=== PATIENT | male | born 1950 | race Caucasian/White ===

== ENCOUNTER 2019-04-14 07:42 | Emergency (ER) | payer MEDICARE ==
[~2019-04-14] VITALS: Ht 190.5 cm; Wt 111.0 kg
[2019-04-14 09:10] VITALS: BP 106/61
== END 2019-04-14 09:11 | disposition home or self-care (01) ==
LOC: ER 07:43
DX: R19.03 Right lower quadrant abdominal swelling, mass and lump (principal); Z95.5 Presence of coronary angioplasty implant and graft
CPT/HCPCS: 99284

== ENCOUNTER 2019-04-27 18:28 | Inpatient (IN) | payer MEDICARE ==
[~2019-04-27] VITALS: Ht 190.5 cm; Wt 119.4 kg
[2019-04-27] MEDS ORDERED: aspirin 81mg tab.chew PO ONE (18:45)
[2019-04-27] MEDS ORDERED: nitroGLYCERIN 0.4mg SUBLingual tab SL PRN ×2 (18:45→21:45)
[2019-04-27 18:55] LABS: BASOPHILS # (AUTO) 0.1 X10'3 (0-0.2); EOSINOPHILS # (AUTO) 0.2 X10'3 (0-0.9); HEMATOCRIT 37.1 % (42.0-52.0); HEMOGLOBIN 12.7 g/dl (14.0-17.9); LYMPHOCYTES # (AUTO) 1.9 X10'3 (1.1-4.8); LYMPHOCYTES % (AUTO) 25.5 % (21-51); MEAN CORPUSCULAR HEMOGLOBIN 30.6 PG (27.0-31.0); MEAN CORPUSCULAR HGB CONC 34.1 g/dL (33.0-36.5); MEAN CORPUSCULAR VOLUME 89.7 FL (78-98); MEAN PLATELET VOLUME 7.7 FL (7.4-10.4); MONOCYTES # (AUTO) 0.6 X10'3 (0-0.9); MONOCYTES % (AUTO) 8.3 % (2-12); NEUTROPHILS # (AUTO) 4.6 X10'3 (1.8-7.7); NEUTROPHILS % (AUTO) 62.2 % (42-75); PLATELET COUNT 170 X10'3 (140-440); RED BLOOD COUNT 4.13 X10'6 (4.70-6.10); RED CELL DISTRIBUTION WIDTH 13.7 % (11.5-14.5); WHITE BLOOD COUNT 7.3 X10'3 (4.5-11.0)
[2019-04-27 19:05] LABS: ALANINE AMINOTRANSFERASE 46 U/L (12-78); ALBUMIN 3.5 G/DL (3.4-5.0); ALKALINE PHOSPHATASE 122 IU/L (46-116); ANION GAP 7 (8-16); ASPARTATE AMINO TRANSFERASE 30 U/L (10-37); BILIRUBIN,TOTAL 1.1 MG/DL (0.1-1.0); BLOOD UREA NITROGEN 18 MG/DL (7-18); BUN/CREATININE RATIO 18.2 (5.4-32.0); CHLORIDE 108 MMOL/L (99-107); CREATININE 0.99 MG/DL (0.60-1.10); GLUCOSE 85 MG/DL (70-104); POTASSIUM 4.4 MMOL/L (3.5-5.1); SODIUM 141 MMOL/L (135-145); TOTAL CARBON DIOXIDE 26.5 MMOL/L (24-32); eGFR 75 ML/MIN
[2019-04-27] MEDS ORDERED: TETanus/Pertussis (Acell)/Diphther VAC/PF (Tdap-Adult) 0.5ml syringe IMVAC ONE (19:10)
[2019-04-27] MEDS ORDERED: ASPI-1144 PO (19:46)
[2019-04-27] MEDS ORDERED: LOSA100T57 PO (19:46)
[2019-04-27] MEDS ORDERED: TICA90TA2 PO (19:46)
[2019-04-27] MEDS ORDERED: NITR0.4T48 SL (19:55)
[2019-04-27] MEDS ORDERED: CALC-1092 (19:55)
[2019-04-27] MEDS ORDERED: OMEG-107 PO (19:55)
[2019-04-27] MEDS ORDERED: ATOR-2 PO (19:55)
[2019-04-27] MEDS ORDERED: CARV3.122 PO (19:55)
[2019-04-27] MEDS ORDERED: EZET10TA48 PO (19:55)
[2019-04-27] MEDS ORDERED: GLUC-193 PO (19:55)
[2019-04-27] MEDS ORDERED: MAGN100T PO (19:57)
[2019-04-27] MEDS ORDERED: iohexol 350MG/ML 100ml bottle IV ONE (20:11)
[2019-04-27] MEDS ORDERED: heparin 10,000 units/1 ML INJ IV PRN (20:20)
[2019-04-27] MEDS ORDERED: heparin 10,000 units/1 ML INJ IV ONE ×2 (20:20→20:30)
[2019-04-27 21:32] LABS: PARTIAL THROMBOPLASTIN TIME 27 SECONDS (22-32)
[2019-04-27] MEDS ORDERED: potassium CL 10mEq/100ml bag 100 ML IV PRN ×2 (21:40)
[2019-04-27] MEDS ORDERED: magnesium 2GM in 50ml NS 50 ML IV PRN (21:40)
[2019-04-27] MEDS ORDERED: mag hydrox/Alum hydrox/simeth 30ml oral suspension PO PRN (21:40)
[2019-04-27] MEDS ORDERED: magnesium hydroxide 30ml (MOM) UD suspension PO PRN (21:40)
[2019-04-27] MEDS ORDERED: magnesium Cl slow-release 64mg tablet PO PRN (21:40)
[2019-04-27] MEDS ORDERED: acetaminophen 325mg tablet PO PRN (21:40)
[2019-04-27] MEDS ORDERED: potassium Cl 20 mEq SR tablet PO PRN ×2 (21:40)
[2019-04-27] MEDS ORDERED: magnesium 4gm in 100ml NS 100 ML IV PRN (21:40)
[2019-04-27] MEDS ORDERED: ondansetron/PF 4mg/2ml inj IV PRN (21:40)
--- NOTE | 2019-04-27 22:00 | NUR ---
Patient in room MED 309. I have received report from RAISSA PARK and had the opportunity to ask questions and assume patient care.
[2019-04-27 22:15] VITALS: BP 117/70
--- NOTE | 2019-04-27 22:15 | NUR ---
PT ARRIVED ON UNIT IN STABLE CONDITION AND IN NO APPARENT DISTRESS.
[2019-04-27] MEDS: ticagrelor 90mg tablet PO SCH (23:09)
[2019-04-27] MEDS: heparin 25,000 UNIT/250ml bag 250 ML IV SCH (23:22)
[2019-04-28] VITALS (11 sets, daily range): BP systolic 104–129; BP diastolic 56–78
[2019-04-28 01:23] LABS: BASOPHILS # (AUTO) 0.1 X10'3 (0-0.2); BASOPHILS % (AUTO) 0.8 % (0-1); EOSINOPHILS # (AUTO) 0.3 X10'3 (0-0.9); HEMATOCRIT 37.4 % (42.0-52.0); HEMOGLOBIN 13.1 g/dl (14.0-17.9); LYMPHOCYTES # (AUTO) 2.4 X10'3 (1.1-4.8); LYMPHOCYTES % (AUTO) 26.3 % (21-51); MEAN CORPUSCULAR HEMOGLOBIN 31.2 PG (27.0-31.0); MEAN CORPUSCULAR HGB CONC 34.9 g/dL (33.0-36.5); MEAN CORPUSCULAR VOLUME 89.4 FL (78-98); MEAN PLATELET VOLUME 7.6 FL (7.4-10.4); MONOCYTES # (AUTO) 0.7 X10'3 (0-0.9); MONOCYTES % (AUTO) 7.9 % (2-12); NEUTROPHILS # (AUTO) 5.6 X10'3 (1.8-7.7); PLATELET COUNT 164 X10'3 (140-440); RED BLOOD COUNT 4.19 X10'6 (4.70-6.10); RED CELL DISTRIBUTION WIDTH 13.6 % (11.5-14.5)
[2019-04-28 01:43] LABS: ALANINE AMINOTRANSFERASE 47 U/L (12-78); ALBUMIN 3.5 G/DL (3.4-5.0); ALKALINE PHOSPHATASE 124 IU/L (46-116); ANION GAP 8 (8-16); ASPARTATE AMINO TRANSFERASE 31 U/L (10-37); BLOOD UREA NITROGEN 16 MG/DL (7-18); CALCIUM 8.5 MG/DL (8.5-10.1); CHLORIDE 107 MMOL/L (99-107); CREATININE 0.94 MG/DL (0.60-1.10); GLUCOSE 108 MG/DL (70-104); POTASSIUM 3.7 MMOL/L (3.5-5.1); SODIUM 141 MMOL/L (135-145); TOTAL CARBON DIOXIDE 25.7 MMOL/L (24-32); TOTAL PROTEIN 7.1 G/DL (6.4-8.2); eGFR 80 ML/MIN
[2019-04-28 01:46] LABS: MAGNESIUM 2.1 MG/DL (1.5-2.4)
--- NOTE | 2019-04-28 06:30 | NUR ---
Patient in room MED 309. I have received report from JOSE PARK and had the opportunity to ask questions and assume patient care.
--- NOTE | 2019-04-28 06:44 | NUR ---
Problems reprioritized. Patient report given, questions answered & plan of care reviewed with Judith PARK.
[2019-04-28] MEDS: heparin 25,000 UNIT/250ml bag 250 ML IV SCH (07:56)
[2019-04-28] MEDS ORDERED: omega-3 acid ethyl esters 1GM capsule PO SCH (08:00)
[2019-04-28] MEDS: ticagrelor 90mg tablet PO SCH (08:00)
[2019-04-28] MEDS ORDERED: K and/or MAG REPLACEMENT MC SCH (08:00)
[2019-04-28] MEDS ORDERED: carVEDilol 3.125mg tablet PO SCH (08:00)
[2019-04-28] MEDS ORDERED: aspirin 81mg tab.chew PO SCH (08:00)
[2019-04-28] MEDS ORDERED: ezetimibe 10mg tablet PO SCH (08:00)
--- NOTE | 2019-04-28 10:53 | NUR ---
STOPPED HEPARIN DRIP AT THIS TIME.
[2019-04-28] MEDS ORDERED: ibuprofen 200mg tablet PO PRN (11:10)
--- NOTE | 2019-04-28 11:17 | NUR ---
PLANS TO GO TO [facility] AT 1300 PER PATIENT REQUEST. TROPONINS NEGATIVE. EKG WNL. CARDIO CONSULT STILL PENDING.
[2019-04-28] MEDS ORDERED: aminophylline 250mg/10ml inj. IV PRN (11:35)
[2019-04-28] MEDS ORDERED: nitroGLYCERIN 0.4mg SUBLingual tab SL PRN (11:35)
[2019-04-28] MEDS ORDERED: regadenoson 0.4mg/5ml syringe IV PRN (11:35)
[2019-04-28] MEDS ORDERED: metoprolol tartrate 1mg/ml inj IV PRN (11:35)
--- NOTE | 2019-04-28 12:15 | NUR ---
Went down to nuc med for stress nuc med test
--- NOTE | 2019-04-28 14:51 | NUR ---
Returned from [facility].
--- NOTE | 2019-04-28 15:01 | NUR ---
Paged hospitalist, "Judith [phone] Enrique Bermudez- Stress test resulted NEGATIVE-please review results."
--- NOTE | 2019-04-28 16:50 | NUR ---
Discussed discharge instructions with patient, verbalizes understanding. IV removed, Tele dc'd. Belongings gathered together. Calling daughter for pickup.
--- NOTE | 2019-04-28 17:19 | NUR ---
Patient waiting on ride, gave report to Florence PARK.
--- NOTE | 2019-04-28 17:48 | NUR ---
Patient discharged, all instructions given to this patient by VIVIAN Wong. Patient left the [facility] unit escorted by VIVIAN Mehta and Student from [facility]. Patient was alert and oriented and in stable condition. He walked out on his own.
[2019-04-28] MEDS ORDERED: losartan 50mg tablet PO SCH (21:00)
[2019-04-28] MEDS ORDERED: atorvastatin 20mg tablet PO SCH (21:00)
--- NOTE | 2019-04-30 12:33 | NUR ---
Case Management DC follow up: spoke to pt via telephone. Reports feeling good, s/s that brought pt into ER have lessened. Taking walks. Still a little tight, most likely muscles in back, Denies CP, emergent general pain, SOB, respiratory distress, NV, dizziness, syncope episodes, abd pain, BARKLEY, blurry vision. Verbalizes understanding of medications and why prescribed. Taking as ordered, no ase noted r/t polypharmacy/new meds. verbalizes understanding of s/s that would warrant -/ER visit for evaluation. Acknowledges importance of scheduling/keeping appointments w/PCP/kirby/appt coming up/referrals/specialists/[facility] at end of May, on cancel list in hopes of getting in earlier. Needs met, questions answered at DC. No further questions at this time.
== END 2019-04-28 17:45 | disposition home or self-care (01) | DRG 552 ==
LOC: ER 18:28 → MED 3N 21:39
PROVIDERS: ADMIT Internal Medicine; ATTEND Internal Medicine
DX: M54.9 Dorsalgia, unspecified (principal); I20.0 Unstable angina; E78.5 Hyperlipidemia, unspecified; I10 Essential (primary) hypertension; M47.816 Spondylosis without myelopathy or radiculopathy, lumbar region; Z79.02 Long term (current) use of antithrombotics/antiplatelets; I25.2 Old myocardial infarction; Z79.82 Long term (current) use of aspirin; Z79.899 Other long term (current) drug therapy; Z82.49 Family history of ischemic heart disease and other diseases of the circulatory system
CPT/HCPCS: 36415; 71045; 71275; 74174; 78452; 80053; 83735; 83880; 84484; 85025; 85610; 85730; 87081; 90715; 93005; 93017; 93306; 99285; A9500; GO378; J1644; J2785; Q9967

== ENCOUNTER 2019-08-27 18:25 | Emergency (ER) | payer MEDICARE, BC ==
[~2019-08-27] VITALS: Ht 190.5 cm; Wt 105.9 kg
[~2019-08-27 18:25] MED LIST: ASPI-1144 PO; ATOR-2 PO; CALC-1092; CARV3.122 PO; EZET10TA48 PO; GLUC-193 PO; LOSA100T57 PO; MAGN100T PO; NITR0.4T48 SL; OMEG-107 PO; TICA90TA2 PO
[2019-08-27 18:46] LABS: BASOPHILS % (AUTO) 0.6 % (0-1); EOSINOPHILS # (AUTO) 0.2 X10'3 (0-0.9); HEMATOCRIT 40.5 % (42.0-52.0); HEMOGLOBIN 13.6 g/dl (14.0-17.9); LYMPHOCYTES # (AUTO) 1.6 X10'3 (1.1-4.8); LYMPHOCYTES % (AUTO) 19.5 % (21-51); MEAN CORPUSCULAR HEMOGLOBIN 30.8 PG (27.0-31.0); MEAN CORPUSCULAR HGB CONC 33.7 g/dL (33.0-36.5); MEAN CORPUSCULAR VOLUME 91.4 FL (78-98); MEAN PLATELET VOLUME 7.7 FL (7.4-10.4); MONOCYTES # (AUTO) 0.5 X10'3 (0-0.9); MONOCYTES % (AUTO) 6.3 % (2-12); NEUTROPHILS # (AUTO) 5.8 X10'3 (1.8-7.7); NEUTROPHILS % (AUTO) 70.6 % (42-75); PLATELET COUNT 173 X10'3 (140-440); RED BLOOD COUNT 4.43 X10'6 (4.70-6.10); RED CELL DISTRIBUTION WIDTH 13.8 % (11.5-14.5); WHITE BLOOD COUNT 8.2 X10'3 (4.5-11.0)
[2019-08-27 19:01] LABS: ALANINE AMINOTRANSFERASE 54 U/L (12-78); ALBUMIN 3.8 G/DL (3.4-5.0); ALBUMIN/GLOBULIN RATIO 0.9 (1.1-1.5); ALKALINE PHOSPHATASE 189 IU/L (46-116); ANION GAP 10 (8-16); ASPARTATE AMINO TRANSFERASE 34 U/L (10-37); BILIRUBIN,TOTAL 1.3 MG/DL (0.1-1.0); BLOOD UREA NITROGEN 32 MG/DL (7-18); BUN/CREATININE RATIO 30.2 (5.4-32.0); CALCIUM 8.7 MG/DL (8.5-10.1); CHLORIDE 107 MMOL/L (99-107); CREATININE 1.06 MG/DL (0.60-1.10); GLUCOSE 117 MG/DL (70-104); POTASSIUM 4.3 MMOL/L (3.5-5.1); SODIUM 140 MMOL/L (135-145); TOTAL CARBON DIOXIDE 22.8 MMOL/L (24-32); TOTAL PROTEIN 7.9 G/DL (6.4-8.2); eGFR 69 ML/MIN
[2019-08-27] MEDS: nitroGLYCERIN 0.4mg SUBLingual tab SL PRN ×3 (19:30→20:13)
[2019-08-27 20:50] VITALS: BP 92/52
== END 2019-08-27 20:55 | disposition home or self-care (01) ==
LOC: ER 18:26
DX: I20.9 Angina pectoris, unspecified (principal); I25.2 Old myocardial infarction; Z98.890 Other specified postprocedural states; Z79.82 Long term (current) use of aspirin; Z79.899 Other long term (current) drug therapy
CPT/HCPCS: 36415; 71045; 80053; 84484; 85025; 93005; 99285

== ENCOUNTER 2020-07-19 08:11 | Emergency (ER) | payer MEDICARE, BC ==
[~2020-07-19] VITALS: Ht 190.5 cm; Wt 106.8 kg
[~2020-07-19 08:11] MED LIST changes: -ATOR-2 PO; +ATOR20TA66 PO; -CALC-1092; -EZET10TA48 PO; -MAGN100T PO; +MAGN100T5 PO; +MULT-1085 PO; -OMEG-107 PO; +VITA-268 PO; +VITA40TA PO
[2020-07-19 08:28] VITALS: BP 131/77
== END 2020-07-19 11:11 | disposition home or self-care (01) ==
LOC: ER 08:12
DX: S80.11XA Contusion of right lower leg, initial encounter (principal); I25.2 Old myocardial infarction; Z95.5 Presence of coronary angioplasty implant and graft; Z79.82 Long term (current) use of aspirin; Z79.899 Other long term (current) drug therapy; X50.1XXA Overexertion from prolonged static or awkward postures, initial encounter; Y93.89 Activity, other specified; Y92.89 Other specified places as the place of occurrence of the external cause; Y99.8 Other external cause status
CPT/HCPCS: 93971; 99284

== ENCOUNTER 2020-10-01 07:08 | Day surgery (SDC) | payer MEDICARE, BC ==
[2020-09-30 10:00] LABS: BASOPHILS % (AUTO) 0.8 % (0-1); EOSINOPHILS # (AUTO) 0.3 X10'3 (0-0.9); EOSINOPHILS % (AUTO) 4.6 % (0-6); HEMATOCRIT 41.2 % (42.0-52.0); HEMOGLOBIN 14.2 g/dl (14.0-17.9); LYMPHOCYTES # (AUTO) 1.2 X10'3 (1.1-4.8); LYMPHOCYTES % (AUTO) 21.1 % (21-51); MEAN CORPUSCULAR HEMOGLOBIN 31.2 PG (27.0-31.0); MEAN CORPUSCULAR HGB CONC 34.5 g/dL (33.0-36.5); MEAN CORPUSCULAR VOLUME 90.5 FL (78-98); MEAN PLATELET VOLUME 7.1 FL (7.4-10.4); MONOCYTES # (AUTO) 0.5 X10'3 (0-0.9); MONOCYTES % (AUTO) 8.2 % (2-12); NEUTROPHILS # (AUTO) 3.7 X10'3 (1.8-7.7); NEUTROPHILS % (AUTO) 65.3 % (42-75); PLATELET COUNT 187 X10'3 (140-440); RED BLOOD COUNT 4.56 X10'6 (4.70-6.10); RED CELL DISTRIBUTION WIDTH 13.5 % (11.5-14.5); WHITE BLOOD COUNT 5.7 X10'3 (4.5-11.0)
[2020-09-30 10:09] LABS: ALBUMIN 3.9 G/DL (3.4-5.0); ANION GAP 8 (8-16); BLOOD UREA NITROGEN 17 MG/DL (7-18); CALCIUM 8.2 MG/DL (8.5-10.1); CHLORIDE 107 MMOL/L (99-107); GLUCOSE 98 MG/DL (70-104); POTASSIUM 4.6 MMOL/L (3.5-5.1); SODIUM 143 MMOL/L (135-145); TOTAL CARBON DIOXIDE 27.8 MMOL/L (24-32); eGFR 74 ML/MIN
[2020-09-30 10:13] LABS: PARTIAL THROMBOPLASTIN TIME 26 SECONDS (22-32)
[2020-10-01] VITALS (10 sets, daily range): BP systolic 109–127; BP diastolic 50–80
[~2020-10-01] VITALS: Ht 190.5 cm; Wt 110.0 kg
[2020-10-01] MEDS ORDERED: diphenhydrAMINE 25mg capsule PO PRN (07:35)
[2020-10-01] MEDS ORDERED: normal saline 1,000 ML IV SCH (07:35)
[2020-10-01] MEDS ORDERED: acetylcysteine 200 MG/ml 4ml vial PO PRN (07:35)
[2020-10-01] MEDS ORDERED: MAGN400C PO (07:41)
[2020-10-01] MEDS ORDERED: LANS30CA56 PO (07:45)
[2020-10-01] MEDS ORDERED: OMEG1CAP21 PO (07:45)
[2020-10-01] MEDS ORDERED: LORazepam 0.5 MG tablet PO PRN (08:00)
[2020-10-01] MEDS ORDERED: LIDOcaine/PRILOcaine 5gm cream TP ONE (08:05)
[2020-10-01] MEDS ORDERED: nitroGLYCERIN-Tridil 50MG/D5W 250 ML IV ONE (10:13)
[2020-10-01] MEDS ORDERED: verapamil 2.5 mg/ml inj IV ONE (10:13)
[2020-10-01] MEDS ORDERED: midazolam 1 mg/ML 2ml injection ONE (10:13)
[2020-10-01] MEDS ORDERED: iohexol 350 MG/ML 50ML vial IV ONE ×3 (10:14→11:23)
[2020-10-01] MEDS ORDERED: heparin 1,000unit/ml 10ml vial 10 ML ONE (10:14)
[2020-10-01] MEDS ORDERED: LIDOcaine 1% (10mg/ml)w/preservative injection 20ml MDV ONE (10:14)
[2020-10-01] MEDS ORDERED: iohexol 350MG/ML 100ml bottle IV ONE (10:14)
[2020-10-01] MEDS ORDERED: fentaNYL/PF 50MCG/1 ML 2ML syringe ONE (10:14)
== END 2020-10-01 16:55 | disposition home or self-care (01) ==
LOC: SSTAY O 07:08
PROVIDERS: ATTEND Internal Medicine Cardiovascular Disease
DX: R94.39 Abnormal result of other cardiovascular function study (principal); R53.83 Other fatigue; I25.10 Atherosclerotic heart disease of native coronary artery without angina pectoris; I10 Essential (primary) hypertension; G47.33 Obstructive sleep apnea (adult) (pediatric); E78.5 Hyperlipidemia, unspecified; I47.1 Supraventricular tachycardia; E66.9 Obesity, unspecified; Z68.30 Body mass index [BMI] 30.0-30.9, adult; Z95.5 Presence of coronary angioplasty implant and graft; Z79.82 Long term (current) use of aspirin; Z79.899 Other long term (current) drug therapy; Z85.46 Personal history of malignant neoplasm of prostate; Z98.52 Vasectomy status; Z90.79 Acquired absence of other genital organ(s); Z98.890 Other specified postprocedural states; Z87.891 Personal history of nicotine dependence; Z88.8 Allergy status to other drugs, medicaments and biological substances; Z79.01 Long term (current) use of anticoagulants
CPT/HCPCS: 36415; 76937; 80048; 85025; 85610; 85730; 93005; 93458; 93567; 99152; 99153; C1751; C1769; C1894; J1644; J2001; J2250; J3010; J7030; Q0163; Q9967; A4620; A5120; A6258; J3490

== ENCOUNTER 2020-11-12 09:50 | Outpatient (CLI) | payer MEDICARE, BC ==
[~2020-11-12 09:50] MED LIST changes: +LANS30CA56 PO; -MAGN100T5 PO; +MAGN400C PO; +OMEG1CAP21 PO; -VITA-268 PO; -VITA40TA PO
[2020-11-12 11:02] LABS: BASOPHILS # (AUTO) 0.1 X10'3 (0-0.2); BASOPHILS % (AUTO) 0.8 % (0-1); EOSINOPHILS # (AUTO) 0.5 X10'3 (0-0.9); LYMPHOCYTES # (AUTO) 1.2 X10'3 (1.1-4.8); LYMPHOCYTES % (AUTO) 20.9 % (21-51); MEAN CORPUSCULAR HEMOGLOBIN 31.1 PG (27.0-31.0); MEAN CORPUSCULAR HGB CONC 34.5 g/dL (33.0-36.5); MEAN CORPUSCULAR VOLUME 90.2 FL (78-98); MEAN PLATELET VOLUME 6.7 FL (7.4-10.4); MONOCYTES # (AUTO) 0.5 X10'3 (0-0.9); MONOCYTES % (AUTO) 8.6 % (2-12); NEUTROPHILS # (AUTO) 3.7 X10'3 (1.8-7.7); NEUTROPHILS % (AUTO) 61.7 % (42-75); PRE OP HEMOGLOBIN 14.5 g/dL (14.0-17.9); PRE OP PLATELET COUNT 199 X10'3 (140-440); RED BLOOD COUNT 4.66 X10'6 (4.70-6.10); RED CELL DISTRIBUTION WIDTH 13.6 % (11.5-14.5)
[2020-11-12] MEDS ORDERED: CARV3.122 PO (11:11)
[2020-11-12 11:26] LABS: ALBUMIN 3.9 G/DL (3.4-5.0); ALBUMIN/GLOBULIN RATIO 0.9 (1.1-1.5); ALKALINE PHOSPHATASE 183 IU/L (46-116); BLOOD UREA NITROGEN 24 MG/DL (7-18); BUN/CREATININE RATIO 25.5 (5.4-32.0); CALCIUM 8.8 MG/DL (8.5-10.1); CHLORIDE 105 MMOL/L (99-107); CREATININE 0.94 MG/DL (0.60-1.10); PRE OP ALT 41 U/L (30-65); PRE OP ANION GAP 7 (8-16); PRE OP AST 42 U/L (10-37); PRE OP BILIRUB, TOTAL 1.3 MG/DL (0.0-1.0); PRE OP GLUCOSE 107 MG/DL (70-104); PRE OP POTASSIUM 4.8 MMOL/L (3.4-5.1); PRE OP SODIUM 140 MMOL/L (135-145); TOTAL CARBON DIOXIDE 28.2 MMOL/L (24-32); TOTAL PROTEIN 8.1 G/DL (6.4-8.2); eGFR 79 ML/MIN
[2020-11-12] MEDS ORDERED: CHOL20004 PO (12:09)
[2020-11-12] MEDS ORDERED: MELA10TA2 PO (12:09)
[2020-11-12] MEDS ORDERED: MAGN250T11 PO (12:09)
[2020-11-12] MEDS ORDERED: VITA100C25 PO (12:09)
[2020-11-12] MEDS ORDERED: VITA-268 PO (12:09)
[2020-11-12] MEDS ORDERED: HYDR-3965 PO (15:47)
[2020-11-12] MEDS ORDERED: AMOX-115 PO (15:47)
== END 2020-11-12 23:59 | disposition home or self-care (01) ==
LOC: PRE-OP 09:50 → EDSTATUS 11-18 09:00
PROVIDERS: ATTEND Surgery
DX: Z01.818 Encounter for other preprocedural examination (principal); K40.20 Bilateral inguinal hernia, without obstruction or gangrene, not specified as recurrent; I25.2 Old myocardial infarction; G47.30 Sleep apnea, unspecified; Z20.822 Contact with and (suspected) exposure to COVID-19; Z87.891 Personal history of nicotine dependence; Z85.46 Personal history of malignant neoplasm of prostate; Z86.19 Personal history of other infectious and parasitic diseases; Z98.890 Other specified postprocedural states; Z79.899 Other long term (current) drug therapy
CPT/HCPCS: 36415; 80053; 85025; U0003; U0005

== ENCOUNTER 2020-11-12 11:05 | Emergency (ER) | payer MEDICARE, BC ==
[~2020-11-12] VITALS: Ht 190.5 cm; Wt 110.0 kg
[~2020-11-12 11:05] MED LIST changes: +LIDOcaine 1% W/epiNEPHrine 1:100,000 20ml vial ONE
[2020-11-12] MEDS ORDERED: CARV3.122 PO (11:11)
[2020-11-12 11:15] VITALS: BP 124/73
[2020-11-12] MEDS ORDERED: oxymetazoline 15 ML nasal spray NS ONE (11:15)
[2020-11-12] MEDS ORDERED: tranexamic acid 100mg/ml inj. TP ONE (11:15)
[2020-11-12] MEDS ORDERED: MAGN250T11 PO (12:09)
[2020-11-12] MEDS ORDERED: MELA10TA2 PO (12:09)
[2020-11-12] MEDS ORDERED: CHOL20004 PO (12:09)
[2020-11-12] MEDS ORDERED: VITA100C25 PO (12:09)
[2020-11-12] MEDS ORDERED: VITA-268 PO (12:09)
[2020-11-12] MEDS ORDERED: LIDOcaine 2% 10ml TOPICAL JELLY (Urojet) MM ONE (12:15)
[2020-11-12 15:30] LABS: BASOPHILS % (AUTO) 0.5 % (0-1); EOSINOPHILS # (AUTO) 0.4 X10'3 (0-0.9); EOSINOPHILS % (AUTO) 4.5 % (0-6); HEMATOCRIT 38.8 % (42.0-52.0); HEMOGLOBIN 13.4 g/dl (14.0-17.9); LYMPHOCYTES # (AUTO) 1.4 X10'3 (1.1-4.8); LYMPHOCYTES % (AUTO) 14.6 % (21-51); MEAN CORPUSCULAR HEMOGLOBIN 31.4 PG (27.0-31.0); MEAN CORPUSCULAR HGB CONC 34.6 g/dL (33.0-36.5); MEAN CORPUSCULAR VOLUME 90.7 FL (78-98); MEAN PLATELET VOLUME 7.1 FL (7.4-10.4); MONOCYTES # (AUTO) 0.6 X10'3 (0-0.9); MONOCYTES % (AUTO) 6.2 % (2-12); NEUTROPHILS # (AUTO) 7.4 X10'3 (1.8-7.7); NEUTROPHILS % (AUTO) 74.2 % (42-75); PLATELET COUNT 191 X10'3 (140-440); RED BLOOD COUNT 4.28 X10'6 (4.70-6.10); RED CELL DISTRIBUTION WIDTH 13.8 % (11.5-14.5); WHITE BLOOD COUNT 9.9 X10'3 (4.5-11.0)
[2020-11-12 15:46] LABS: ALANINE AMINOTRANSFERASE 40 U/L (12-78); ALBUMIN 3.6 G/DL (3.4-5.0); ALKALINE PHOSPHATASE 158 IU/L (46-116); ANION GAP 8 (8-16); ASPARTATE AMINO TRANSFERASE 29 U/L (10-37); BILIRUBIN,TOTAL 1.4 MG/DL (0.1-1.0); BLOOD UREA NITROGEN 28 MG/DL (7-18); BUN/CREATININE RATIO 33.3 (5.4-32.0); CALCIUM 8.6 MG/DL (8.5-10.1); CHLORIDE 109 MMOL/L (99-107); CREATININE 0.84 MG/DL (0.60-1.10); GLUCOSE 110 MG/DL (70-104); POTASSIUM 4.6 MMOL/L (3.5-5.1); SODIUM 142 MMOL/L (135-145); TOTAL CARBON DIOXIDE 24.8 MMOL/L (24-32); TOTAL PROTEIN 7.3 G/DL (6.4-8.2); eGFR 90 ML/MIN
[2020-11-12] MEDS ORDERED: HYDR-3965 PO (15:47)
[2020-11-12] MEDS ORDERED: AMOX-115 PO (15:47)
== END 2020-11-12 16:02 | disposition home or self-care (01) ==
LOC: ER 11:08
DX: R04.0 Epistaxis (principal); D68.59 Other primary thrombophilia; I25.2 Old myocardial infarction; Z98.890 Other specified postprocedural states; Z79.2 Long term (current) use of antibiotics; Z79.899 Other long term (current) drug therapy
CPT/HCPCS: 30901; 36415; 80053; 85025; 99284

== ENCOUNTER 2020-11-15 09:16 | Emergency (ER) | payer MEDICARE, BC ==
[~2020-11-15] VITALS: Ht 190.5 cm; Wt 104.5 kg
[~2020-11-15 09:16] MED LIST changes: +AMOX-115 PO; +CHOL20004 PO; +HYDR-3965 PO; -LIDOcaine 1% W/epiNEPHrine 1:100,000 20ml vial ONE; +MAGN250T11 PO; -MAGN400C PO; +MELA10TA2 PO; +VITA-268 PO; +VITA100C25 PO
[2020-11-15 09:22] VITALS: BP 125/74
[2020-11-15] MEDS ORDERED: oxymetazoline 15 ML nasal spray NS ONE (10:25)
== END 2020-11-15 11:18 | disposition home or self-care (01) ==
LOC: ER 09:17
DX: Z48.00 Encounter for change or removal of nonsurgical wound dressing (principal); I25.2 Old myocardial infarction; Z95.5 Presence of coronary angioplasty implant and graft; Z79.82 Long term (current) use of aspirin; Z79.899 Other long term (current) drug therapy; Z79.01 Long term (current) use of anticoagulants
CPT/HCPCS: 99282

== ENCOUNTER 2021-03-19 04:48 | Observation (INO) | payer MEDICARE, BC ==
[2021-03-19] VITALS (8 sets, daily range): BP systolic 113–154; BP diastolic 55–76
[~2021-03-19] VITALS: Ht 190.5 cm; Wt 113.0 kg
[~2021-03-19 04:48] MED LIST changes: -AMOX-115 PO; -HYDR-3965 PO
[2021-03-19] MEDS ORDERED: aspirin 325mg tablet PO ONE (05:55)
[2021-03-19 06:26] LABS: ALANINE AMINOTRANSFERASE 47 U/L (12-78); ALBUMIN 3.6 G/DL (3.4-5.0); ALBUMIN/GLOBULIN RATIO 0.9 (1.1-1.5); ALKALINE PHOSPHATASE 202 IU/L (46-116); ANION GAP 11 (8-16); ASPARTATE AMINO TRANSFERASE 36 U/L (10-37); BILIRUBIN,TOTAL 0.8 MG/DL (0.1-1.0); BLOOD UREA NITROGEN 21 MG/DL (7-18); BUN/CREATININE RATIO 23.9 (5.4-32.0); CALCIUM 8.7 MG/DL (8.5-10.1); CHLORIDE 105 MMOL/L (99-107); CREATININE 0.88 MG/DL (0.60-1.10); GLUCOSE 108 MG/DL (70-104); POTASSIUM 4.1 MMOL/L (3.5-5.1); SODIUM 141 MMOL/L (135-145); TOTAL CARBON DIOXIDE 25.3 MMOL/L (24-32); TOTAL PROTEIN 7.6 G/DL (6.4-8.2); eGFR 85 ML/MIN
[2021-03-19 06:34] LABS: BASOPHILS % (AUTO) 0.6 % (0-1); EOSINOPHILS # (AUTO) 0.3 X10'3 (0-0.9); EOSINOPHILS % (AUTO) 4.3 % (0-6); HEMATOCRIT 39.6 % (42.0-52.0); HEMOGLOBIN 13.4 g/dl (14.0-17.9); LYMPHOCYTES # (AUTO) 1.1 X10'3 (1.1-4.8); LYMPHOCYTES % (AUTO) 17.9 % (21-51); MEAN CORPUSCULAR HEMOGLOBIN 29.6 PG (27.0-31.0); MEAN CORPUSCULAR VOLUME 86.9 FL (78-98); MEAN PLATELET VOLUME 7.4 FL (7.4-10.4); MONOCYTES # (AUTO) 0.6 X10'3 (0-0.9); MONOCYTES % (AUTO) 9.5 % (2-12); NEUTROPHILS % (AUTO) 67.7 % (42-75); PLATELET COUNT 185 X10'3 (140-440); RED BLOOD COUNT 4.55 X10'6 (4.70-6.10)
[2021-03-19] MEDS ORDERED: ondansetron/PF 4mg/2ml inj IV PRN (08:25)
[2021-03-19] MEDS ORDERED: magnesium hydroxide 30ml (MOM) UD suspension PO PRN (08:25)
[2021-03-19] MEDS ORDERED: nitroGLYCERIN 0.4mg SUBLingual tab SL PRN ×2 (08:25)
[2021-03-19] MEDS ORDERED: morphine 2 MG/ML inj. syringe IV PRN ×2 (08:25)
[2021-03-19] MEDS ORDERED: metoprolol tartrate 1mg/ml inj IV PRN (08:25)
[2021-03-19] MEDS ORDERED: regadenoson 0.4mg/5ml syringe IV PRN (08:25)
[2021-03-19] MEDS ORDERED: aminophylline 250mg/10ml inj. IV PRN (08:25)
[2021-03-19] MEDS ORDERED: acetaminophen 325mg tablet PO PRN ×2 (08:25)
[2021-03-19] MEDS ORDERED: mag hydrox/Alum hydrox/simeth 30ml oral suspension PO PRN (08:25)
--- NOTE | 2021-03-19 11:00 | NUR ---
Mr. Bermudez has been assessed as indicated. He rayna gore
--- NOTE | 2021-03-19 11:00 | NUR ---
Mr Bermudez has been assessed as indicated. He denies any chest pain. He is going to have a stress res Addendum: 03/19/21 at 1526 by Porsche Wasserman RN test at this time. He has no s/s of distress or discomfort and is compliant with the plan to DC.
--- NOTE | 2021-03-19 14:00 | NUR ---
Mr Bermudez has completed the admission process. He has no s/s of distress or discomfort. He answerers all questions appropriately. His skin has been found to be intact. he has completed the stress test and awaits the results. He has been noted to be both pleasant and cooperative and will continue to be monitored
[2021-03-19] MEDS ORDERED: LOSA50TA64 PO (14:40)
[2021-03-19] MEDS ORDERED: ATOR40TA71 PO (14:41)
--- NOTE | 2021-03-19 16:50 | NUR ---
Mr Bermudez has been DC to home. IV access has been removed. He was transported by hospital staff to the front door via WC to be driven home via private vehicle driven by his grandson. He had no s/s of distress or discomfort at the time of DC and he was compliant with the plan to DC home. His stress test results were reviewed by Dr Finnegan prior to DC. DC instructions were reviewed he expressed his understanding and signed DC documentation to that effect.
[2021-03-19] MEDS ORDERED: docusate sod 100mg capsule PO SCH (20:00)
[2021-03-20] MEDS ORDERED: aspirin 81mg, enteric-coated 1 TAB TABLET.DR PO SCH (08:00)
== END 2021-03-19 17:52 | disposition home or self-care (01) ==
LOC: ER 04:48 → ED HOLD 08:26 → PCU 3S 10:43
PROVIDERS: ADMIT Internal Medicine; ATTEND Internal Medicine
DX: R07.89 Other chest pain (principal); I25.10 Atherosclerotic heart disease of native coronary artery without angina pectoris; M79.603 Pain in arm, unspecified; I24.9 Acute ischemic heart disease, unspecified; K21.9 Gastro-esophageal reflux disease without esophagitis; I10 Essential (primary) hypertension; E78.5 Hyperlipidemia, unspecified; I25.2 Old myocardial infarction; Z79.899 Other long term (current) drug therapy; Z79.82 Long term (current) use of aspirin; Z95.5 Presence of coronary angioplasty implant and graft
CPT/HCPCS: 36415; 71045; 78452; 80053; 83880; 84484; 85025; 93005; 93017; 99285; A9500; G0378; J2785

== ENCOUNTER 2021-04-21 10:22 | Day surgery (SDC) | payer MEDICARE, BC ==
[2021-04-15 10:43] LABS: BASOPHILS % (AUTO) 0.8 % (0-1); EOSINOPHILS # (AUTO) 0.2 X10'3 (0-0.9); EOSINOPHILS % (AUTO) 3.3 % (0-6); LYMPHOCYTES # (AUTO) 1.2 X10'3 (1.1-4.8); LYMPHOCYTES % (AUTO) 23.6 % (21-51); MEAN CORPUSCULAR HEMOGLOBIN 29.1 PG (27.0-31.0); MEAN CORPUSCULAR HGB CONC 33.4 g/dL (33.0-36.5); MEAN CORPUSCULAR VOLUME 87.3 FL (78-98); MEAN PLATELET VOLUME 7.1 FL (7.4-10.4); MONOCYTES # (AUTO) 0.5 X10'3 (0-0.9); MONOCYTES % (AUTO) 9.6 % (2-12); NEUTROPHILS # (AUTO) 3.3 X10'3 (1.8-7.7); NEUTROPHILS % (AUTO) 62.7 % (42-75); PRE OP HEMATOCRIT 40.4 % (42.0-52.0); PRE OP HEMOGLOBIN 13.5 g/dL (14.0-17.9); PRE OP PLATELET COUNT 188 X10'3 (140-440); RED BLOOD COUNT 4.63 X10'6 (4.70-6.10); RED CELL DISTRIBUTION WIDTH 14.9 % (11.5-14.5)
[2021-04-15 10:53] LABS: APTT 27 SECONDS (22-32)
[2021-04-15 12:28] LABS: ALBUMIN 3.9 G/DL (3.4-5.0); ALBUMIN/GLOBULIN RATIO 1.1 (1.1-1.5); ALKALINE PHOSPHATASE 171 IU/L (46-116); BLOOD UREA NITROGEN 21 MG/DL (7-18); BUN/CREATININE RATIO 24.4 (5.4-32.0); CALCIUM 8.6 MG/DL (8.5-10.1); CHLORIDE 105 MMOL/L (99-107); CREATININE 0.86 MG/DL (0.60-1.10); PRE OP ALT 61 U/L (30-65); PRE OP ANION GAP 9 (8-16); PRE OP AST 37 U/L (10-37); PRE OP BILIRUB, TOTAL 1.3 MG/DL (0.0-1.0); PRE OP GLUCOSE 98 MG/DL (70-104); PRE OP POTASSIUM 4.8 MMOL/L (3.4-5.1); PRE OP SODIUM 139 MMOL/L (135-145); TOTAL CARBON DIOXIDE 25.5 MMOL/L (24-32); TOTAL PROTEIN 7.5 G/DL (6.4-8.2); eGFR 88 ML/MIN
[2021-04-21] VITALS (9 sets, daily range): BP systolic 119–138; BP diastolic 66–80
[~2021-04-21] VITALS: Ht 190.5 cm; Wt 108.0 kg
[~2021-04-21 10:22] MED LIST changes: -ASPI-1144 PO; -ATOR20TA66 PO; +ATOR40TA71 PO; -CHOL20004 PO; +CHOL500037 PO; +DOCUMENT DATE & TIME OF BETA-BLOCKER PO ONE; -GLUC-193 PO; +GLUCOSAMINE/MSM PO; -LOSA100T57 PO; +LOSA50TA64 PO; -VITA-268 PO; +VITA1TAB20 PO; +cefazolin/dext.iso 2gm/50ml IV ONE; +famotidine 20mg tablet PO ONE; +ringers solution, lacted 1,000 ML IV SCH
[2021-04-21] MEDS ORDERED: BUPIVAcaine 0.5% inj/PF 30 ML ONE (15:41)
[2021-04-21] MEDS ORDERED: LIDOcaine 1% 30ml preserv. free vial ONE (15:41)
[2021-04-21] MEDS ORDERED: fentaNYL /PF 50mcg/ml 5ml ampule ONE (16:01)
[2021-04-21] MEDS ORDERED: midazolam 1 mg/ML 2ml injection ONE (16:01)
[2021-04-21] MEDS ORDERED: LIDOcaine 2% (20mg/ml) 5ml vial ONE (16:12)
[2021-04-21] MEDS ORDERED: propofol inj 20 ML IV ONE (16:12)
[2021-04-21] MEDS ORDERED: ondansetron/PF 4mg/2ml inj ONE (16:15)
[2021-04-21] MEDS ORDERED: rocuronium 10mg/ml inj IV ONE (16:15)
--- NOTE | 2021-04-21 18:03 | NUR ---
Received from OR via stretcher , accompanied by Anesthesiologist Dr. Chavez and report given by Anesthesiolgist. pt awake and arousable, vital signs stable, dressing dry and intact. sinus rhythm on the monitor
[2021-04-21] MEDS ORDERED: BUPIVAcaine 0.5% inj/PF 30 ml vial IJ ONE (18:10)
[2021-04-21] MEDS ORDERED: ringers solution, lacted 1,000 ML IV SCH (18:15)
[2021-04-21] MEDS ORDERED: morphine 2 MG/ML inj. syringe IV PRN (18:15)
[2021-04-21] MEDS ORDERED: proCHLORperazine 10 MG/2 ml inj IV PRN (18:15)
[2021-04-21] MEDS ORDERED: morphine 4 MG/ML inj SYRINge IV PRN (18:15)
[2021-04-21] MEDS ORDERED: acetaminophen 1,000mg/100ml IV 100 ML IV ONE (18:15)
[2021-04-21] MEDS ORDERED: meperidine/PF 25mg/ml syringe IV PRN ×3 (18:15)
[2021-04-21] MEDS ORDERED: ondansetron/PF 4mg/2ml inj IV PRN (18:15)
[2021-04-21] MEDS ORDERED: HYDROcodone/acetaminophen 5mg/325mg tablet PO PRN (18:25)
--- NOTE | 2021-04-21 19:37 | NUR ---
pt discharged in stable condition, juice and crackers given tolerated well, norco given at 1900, time documented on discharge papers so pt would know the time for his next pain pill. pt taken via wheel chair to daughters car. abd dressing were dry, pt has small amount of urinary incontinence, bladder scanned for less than 20 cc in bladder. pt verbalized understanding of instructions, instructions also given to ramón escobar by dr lo over the phone.
== END 2021-04-21 19:43 | disposition home or self-care (01) ==
LOC: PAS 10:22
PROVIDERS: ATTEND Surgery
DX: K40.20 Bilateral inguinal hernia, without obstruction or gangrene, not specified as recurrent (principal); I10 Essential (primary) hypertension; I25.10 Atherosclerotic heart disease of native coronary artery without angina pectoris; G47.30 Sleep apnea, unspecified; K21.9 Gastro-esophageal reflux disease without esophagitis; I25.2 Old myocardial infarction; E66.9 Obesity, unspecified; Z68.29 Body mass index [BMI] 29.0-29.9, adult; Z20.822 Contact with and (suspected) exposure to COVID-19; Z79.01 Long term (current) use of anticoagulants; Z79.899 Other long term (current) drug therapy; Z90.79 Acquired absence of other genital organ(s); Z95.5 Presence of coronary angioplasty implant and graft; Z85.46 Personal history of malignant neoplasm of prostate; Z79.82 Long term (current) use of aspirin; Z87.891 Personal history of nicotine dependence; Z85.828 Personal history of other malignant neoplasm of skin; Z86.19 Personal history of other infectious and parasitic diseases; Z81.1 Family history of alcohol abuse and dependence; Z82.49 Family history of ischemic heart disease and other diseases of the circulatory system
CPT/HCPCS: 36415; 49650; 80053; 82948; 85025; 85610; 85730; C1781; J0131; J2250; J2405; J2704; J3010; J3490; J7030; J7120; S0020; U0003; U0005; Z7506; Z7508; Z7512; A4215; A4618

== ENCOUNTER 2021-06-13 11:16 | Emergency (ER) | payer MEDICARE, BC ==
[~2021-06-13] VITALS: Ht 190.5 cm; Wt 109.0 kg
[~2021-06-13 11:16] MED LIST changes: -DOCUMENT DATE & TIME OF BETA-BLOCKER PO ONE; -cefazolin/dext.iso 2gm/50ml IV ONE; -famotidine 20mg tablet PO ONE; -ringers solution, lacted 1,000 ML IV SCH
--- NOTE | 2021-06-13 12:00 | NUR ---
back from ct scan via wheelchair in stable condition
[2021-06-13 13:08] VITALS: BP 116/68
== END 2021-06-13 13:09 | disposition home or self-care (01) ==
LOC: ER 11:18
DX: S00.81XA Abrasion of other part of head, initial encounter (principal); I25.2 Old myocardial infarction; Z90.79 Acquired absence of other genital organ(s); Z95.5 Presence of coronary angioplasty implant and graft; Z79.899 Other long term (current) drug therapy; W22.8XXA Striking against or struck by other objects, initial encounter; Y93.01 Activity, walking, marching and hiking; Y92.89 Other specified places as the place of occurrence of the external cause; Y99.8 Other external cause status
CPT/HCPCS: 70450; 99284

== ENCOUNTER 2021-08-10 11:31 | Emergency (ER) | payer MEDICARE, BC ==
[~2021-08-10] VITALS: Ht 190.5 cm; Wt 109.1 kg
[2021-08-10 12:06] LABS: BASOPHILS # (AUTO) 0.1 X10'3 (0-0.2); BASOPHILS % (AUTO) 0.5 % (0-1); EOSINOPHILS # (AUTO) 0.2 X10'3 (0-0.9); EOSINOPHILS % (AUTO) 1.5 % (0-6); HEMATOCRIT 40.1 % (42.0-52.0); HEMOGLOBIN 13.3 g/dl (14.0-17.9); LYMPHOCYTES # (AUTO) 0.9 X10'3 (1.1-4.8); LYMPHOCYTES % (AUTO) 8.6 % (21-51); MEAN CORPUSCULAR HGB CONC 33.2 g/dL (33.0-36.5); MEAN CORPUSCULAR VOLUME 87.3 FL (78-98); MEAN PLATELET VOLUME 7.1 FL (7.4-10.4); MONOCYTES # (AUTO) 0.8 X10'3 (0-0.9); MONOCYTES % (AUTO) 7.5 % (2-12); NEUTROPHILS # (AUTO) 8.9 X10'3 (1.8-7.7); NEUTROPHILS % (AUTO) 81.9 % (42-75); PLATELET COUNT 190 X10'3 (140-440); RED BLOOD COUNT 4.59 X10'6 (4.70-6.10); RED CELL DISTRIBUTION WIDTH 14.6 % (11.5-14.5); WHITE BLOOD COUNT 10.9 X10'3 (4.5-11.0)
[2021-08-10] MEDS ORDERED: normal saline 1000ML IV soln IVB ONE (12:15)
[2021-08-10 12:22] LABS: ALANINE AMINOTRANSFERASE 31 U/L (12-78); ALBUMIN 3.7 G/DL (3.4-5.0); ALBUMIN/GLOBULIN RATIO 0.9 (1.1-1.5); ALKALINE PHOSPHATASE 171 IU/L (46-116); ANION GAP 8 (8-16); ASPARTATE AMINO TRANSFERASE 26 U/L (10-37); BILIRUBIN,TOTAL 1.3 MG/DL (0.1-1.0); BLOOD UREA NITROGEN 20 MG/DL (7-18); BUN/CREATININE RATIO 12.9 (5.4-32.0); CALCIUM 8.2 MG/DL (8.5-10.1); CHLORIDE 104 MMOL/L (99-107); CREATININE 1.55 MG/DL (0.60-1.10); GLUCOSE 82 MG/DL (70-104); POTASSIUM 3.9 MMOL/L (3.5-5.1); SODIUM 139 MMOL/L (135-145); TOTAL CARBON DIOXIDE 26.6 MMOL/L (24-32); TOTAL PROTEIN 7.7 G/DL (6.4-8.2); eGFR 44 ML/MIN
[2021-08-10 14:27] VITALS: BP 114/64
== END 2021-08-10 14:29 | disposition home or self-care (01) ==
LOC: ER 11:31
DX: E86.0 Dehydration (principal); R53.1 Weakness
CPT/HCPCS: 36415; 71045; 80053; 83880; 84484; 85025; 93005; 99285; J7030

== ENCOUNTER 2022-01-23 06:47 | Emergency (ER) | payer MEDICARE, BC ==
[~2022-01-23] VITALS: Ht 190.5 cm; Wt 111.4 kg
[2022-01-23 08:01] LABS: BASOPHILS # (AUTO) 0.1 X10'3 (0-0.2); BASOPHILS % (AUTO) 1.4 % (0-1); EOSINOPHILS # (AUTO) 0.2 X10'3 (0-0.9); HEMATOCRIT 38.1 % (42.0-52.0); HEMOGLOBIN 12.8 g/dl (14.0-17.9); LYMPHOCYTES # (AUTO) 1.2 X10'3 (1.1-4.8); LYMPHOCYTES % (AUTO) 19.5 % (21-51); MEAN CORPUSCULAR HEMOGLOBIN 30.1 PG (27.0-31.0); MEAN CORPUSCULAR HGB CONC 33.5 g/dL (33.0-36.5); MEAN CORPUSCULAR VOLUME 89.9 FL (78-98); MEAN PLATELET VOLUME 7.1 FL (7.4-10.4); MONOCYTES # (AUTO) 0.5 X10'3 (0-0.9); MONOCYTES % (AUTO) 8.6 % (2-12); NEUTROPHILS # (AUTO) 4.2 X10'3 (1.8-7.7); NEUTROPHILS % (AUTO) 67.5 % (42-75); PLATELET COUNT 174 X10'3 (140-440); RED BLOOD COUNT 4.24 X10'6 (4.70-6.10); RED CELL DISTRIBUTION WIDTH 14.1 % (11.5-14.5); WHITE BLOOD COUNT 6.2 X10'3 (4.5-11.0)
[2022-01-23 08:36] LABS: ALANINE AMINOTRANSFERASE 25 U/L (12-78); ALBUMIN 3.4 G/DL (3.4-5.0); ALKALINE PHOSPHATASE 157 IU/L (46-116); ASPARTATE AMINO TRANSFERASE 28 U/L (10-37); BLOOD UREA NITROGEN 27 MG/DL (7-18); BUN/CREATININE RATIO 24.1 (5.4-32.0); CALCIUM 8.4 MG/DL (8.5-10.1); CREATININE 1.12 MG/DL (0.60-1.10); GLUCOSE 100 MG/DL (70-104); POTASSIUM 4.4 MMOL/L (3.5-5.1); TOTAL CARBON DIOXIDE 27.6 MMOL/L (24-32); TOTAL PROTEIN 6.9 G/DL (6.4-8.2); eGFR 64 ML/MIN
[2022-01-23 08:41] LABS: ANION GAP 4 (8-16); CHLORIDE 107 MMOL/L (99-107); SODIUM 139 MMOL/L (135-145)
[2022-01-23] MEDS ORDERED: magnesium Cl slow-release 64mg tablet PO PRN (12:45)
[2022-01-23] MEDS ORDERED: potassium Cl 20 mEq SR tablet PO PRN ×2 (12:45)
[2022-01-23] MEDS ORDERED: acetaminophen 325mg tablet PO PRN (12:45)
[2022-01-23] MEDS ORDERED: magnesium hydroxide 30ml (MOM) UD suspension PO PRN (12:45)
[2022-01-23] MEDS ORDERED: magnesium 4gm in 100ml NS 100 ML IV PRN (12:45)
[2022-01-23] MEDS ORDERED: ondansetron/PF 4mg/2ml inj IV PRN (12:45)
[2022-01-23] MEDS ORDERED: potassium Cl 40MEQ/1/2NS 520ml 520 ML IV PRN (12:45)
[2022-01-23] MEDS ORDERED: mag hydrox/Alum hydrox/simeth 30ml oral suspension PO PRN (12:45)
[2022-01-23] MEDS ORDERED: morphine 2 MG/ML inj. syringe IV PRN ×2 (12:45)
[2022-01-23] MEDS ORDERED: normal saline 1000ml 1,000 ML IV SCH (12:45)
[2022-01-23 13:01] LABS: MAGNESIUM 1.9 MG/DL (1.5-2.4)
[2022-01-23 15:41] VITALS: BP 140/84
[2022-01-23] MEDS ORDERED: heparin, porcine 5000 units/ml vial SQ SCH (20:00)
[2022-01-23] MEDS ORDERED: K and/or MAG REPLACEMENT MC SCH (20:00)
[2022-01-23] MEDS ORDERED: docusate sod 100mg capsule PO SCH (20:00)
== END 2022-01-23 15:44 | disposition home or self-care (01) ==
LOC: ER 06:48 → UNDOADMIN 12:47 → ED HOLD 12:47 → UNDODISIN 14:51
DX: R07.89 Other chest pain (principal)
CPT/HCPCS: 36415; 71045; 80053; 83735; 83880; 84484; 85025; 93005; 99285; J7030; G0378

== ENCOUNTER → 2024-08-16 | Day surgery (SDC) | payer MEDICARE, BC ==
[2024-08-15 13:50] LABS: MEAN PLATELET VOLUME 7.2 FL (7.4-10.4); RED CELL DISTRIBUTION WIDTH 14.5 % (11.5-14.5)
[2024-08-15 14:21] LABS: CREATININE 1.22 MG/DL (0.60-1.10); TOTAL CARBON DIOXIDE 25.3 MMOL/L (24-32); eGFR 58 ML/MIN
[2024-08-15 14:23] LABS: INR 1.1 INR
[~2024-08-16] VITALS: Ht 190.5 cm; Wt 107.5 kg
[~2024-08-16] MED LIST changes: +AMI200T PO; +APIX5TAB5 PO; +GLUC15006 PO; +LISI40TA13 PO; +MIDAZolam 1mg/ml 10ml vial IV ONE; +VITA-290 PO; -VITA1TAB20 PO; +amiodarone 150mg/dext, iso-os 100 ML IV ONE; +amiodarone 50MG/ML inj IV ONE; +atropine 0.1mg/ml 10ml syringe IV ONE; +atropine 0.1mg/ml 10ml syringe ONE; +fentaNYL/PF 50MCG/1 ML 2ML syringe ONE; +midazolam 1 mg/ML 2ml injection ONE; +morphine 10mg/ml inj. IV ONE
--- NOTE | 2024-08-16 06:19 | ELECTROCARDIOGRAPH REPORT ---
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 PRINCE Guzmna Measurements Intervals [place] Rate: 79 P: 0 CA: 0 QRS: -24 QRSD: 90 T: 84 QT: 388 QTc: 445 Interpretive Statements Atrial fibrillation Borderline left axis deviation Abnormal R-wave progression, early transition Electronically Signed On 08-16-2024 9:31:[address] PRINCE Guzman Please click the below link to view image of tracing.
[2024-08-16 06:30] VITALS: BP 140/94; PULSE 85; RESP 13; TEMP 97.5; O2SAT 96
[2024-08-16 08:46] VITALS: BP 119/61; PULSE 57; RESP 18; O2SAT 95
[2024-08-16] MEDS: normal saline 1000ml 1,000 ML IV SCH (08:59)
[2024-08-16 09:00] VITALS: BP 102/57; PULSE 58; RESP 14; O2SAT 96
--- NOTE | 2024-08-16 09:04 | ELECTROCARDIOGRAPH REPORT ---
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 PRINCE Guzman Measurements Intervals [place] Rate: 51 P: 38 IA: 175 QRS: -29 QRSD: 92 T: 43 QT: 500 QTc: 461 Interpretive Statements Sinus rhythm Multiple premature complexes, vent & supraven Left ventricular hypertrophy Inferior infarct, old Electronically Signed On 08-16-2024 9:32:[address] PRINCE Guzman Please click the below link to view image of tracing.
[2024-08-16 09:15] VITALS: BP 98/50; PULSE 59; RESP 15; O2SAT 97
[2024-08-16 09:30] VITALS: BP 103/52; PULSE 56; RESP 18; O2SAT 98
[2024-08-16 09:45] VITALS: BP 104/75; PULSE 56; RESP 16; O2SAT 98
--- NOTE | 2024-08-16 11:09 | CARDIOLOGY REPORT ---
DATE OF SERVICE: 08/16/2024 DICTATING PHYSICIAN: PRINCE Guzman MD ELECTRICAL CARDIOVERSION: PRIMARY PHYSICIAN: Dr.jaya Pierce. RN FAMILY: PRINCE Guzman MD INDICATION: The patient is a 74-year-old male with hypertension, hyperlipidemia, CAD, sleep apnea, paroxysmal atrial fibrillation, and history of PTCA stenting of his LAD by Dr. Lyle Pollard in [place] in 2019. The patient has a history of PAF. He was noted to be in AFib back in 06/2024, started on amiodarone and Eliquis. After discussing the risks, benefits, and alternative options, the patient prefers to proceed with electrical cardioversion in view of his symptoms. Risks, benefits, and alternative options discussed. Informed consent was obtained. DESCRIPTION OF PROCEDURE: Anterior and posterior patches were used, using biphasic electrical energy 200 joules x 1 convert to normal sinus rhythm. IMPRESSION: A 74-year-old presented with AFib, converted to normal sinus rhythm. RECOMMENDATIONS: Continue amiodarone 200 mg p.o. daily and carvedilol 3.25 mg p.o. b.i.d., amiodarone 200 mg p.o. daily, apixaban 5 mg p.o. b.i.d. Recommend diet, weight loss and exercise program and continue BiPAP. PRINCE Guzman MD TID: [id number] RECEIPT: [id number] /MORALES/FEB cc: Irvin Pierce [facility]
== END | disposition home or self-care (01) ==
LOC: SSTAY O 05:53
PROVIDERS: ATTEND Internal Medicine Cardiovascular Disease
DX: I48.0 Paroxysmal atrial fibrillation (principal); I25.10 Atherosclerotic heart disease of native coronary artery without angina pectoris; G47.30 Sleep apnea, unspecified; E78.5 Hyperlipidemia, unspecified; I25.2 Old myocardial infarction; I11.9 Hypertensive heart disease without heart failure; Z95.5 Presence of coronary angioplasty implant and graft
CPT/HCPCS: 36415; 80048; 85025; 85610; 92960; 93005; A4615; J2250; J3010; J7030; Z7610; 99152; J0282; J0461